=== PATIENT | male | born 1945 | race African-American/Black ===

== ENCOUNTER 2018-09-08 14:28 | Outpatient (CLI) | payer MEDICARE, MEDICAID ==
--- NOTE | 2018-09-08 14:56 | RAD ---
CHEST 2 VIEWS: Date: 09/08/18 HISTORY: Cough. COMPARISON: 07/09/13. FINDINGS: Borderline hyperinflation with scattered chronic lung changes. Patchy parenchymal changes in the left lower lobe, evidence for pneumonia. Right lung is clear. IMPRESSION: Evidence for left lower lobe pneumonia. Follow-up several weeks after completion of treatment to docu ment clearing. Minimal hyperinflation, stable. Atherosclerosis of aorta. CODE T. POS: OFF
== END 2018-09-08 14:29 | disposition home or self-care (01) ==
LOC: RAD-FRANK 14:28
PROVIDERS: ATTEND Nurse Practitioner Family
DX: R05 Cough (principal); J18.1 Lobar pneumonia, unspecified organism; I70.0 Atherosclerosis of aorta
CPT/HCPCS: 71046

== ENCOUNTER 2018-09-22 09:37 | Outpatient (CLI) | payer MEDICARE, MEDICAID ==
--- NOTE | 2018-09-22 09:48 | RAD ---
XR Chest Pa Lat STANDARD HISTORY: Cough COMPARISON: 09/08/2018 FINDINGS: The heart size is normal. The lungs are well expanded without focal areas of consolidation, pneumothorax or pleural effusions. The aorta is tortuous. The mild infiltrate at the left lung base shows near complete resolution. Minimal residual scarring may be present. There are degenerative changes in the spine. IMPRESSION: No radiographic evidence of acute cardiopulmonary process.
== END 2018-09-22 09:38 | disposition home or self-care (01) ==
LOC: RAD-FRANK 09:37
PROVIDERS: ATTEND Nurse Practitioner Family
DX: R05 Cough (principal)
CPT/HCPCS: 71046

== ENCOUNTER 2020-12-22 09:28 | Outpatient (CLI) | payer MEDICARE, MEDICAID | END 2020-12-22 09:29 | disposition home or self-care (01) | LOC: RAD-FRANK 09:28 | PROVIDERS: ATTEND Nurse Practitioner Family | DX: M79.622 Pain in left upper arm (principal); M19.012 Primary osteoarthritis, left shoulder ==

== ENCOUNTER 2023-02-11 10:48 | Outpatient (CLI) | payer MEDICARE | END 2023-02-11 10:49 | disposition home or self-care (01) | LOC: RAD-FRANK 10:48 | PROVIDERS: ATTEND Nurse Practitioner Family | DX: M54.50 Low back pain, unspecified (principal); M47.816 Spondylosis without myelopathy or radiculopathy, lumbar region | CPT/HCPCS: 72100 ==

== ENCOUNTER 2023-05-13 10:16 | Emergency (ER) | payer MEDICARE, MEDICAID ==
[2023-05-13] MEDS ORDERED: HYDROcodone/Acetaminophen 5/325 mg Tablet ONE (10:37)
== END 2023-05-13 10:47 | disposition home or self-care (01) ==
LOC: ERS 10:16
DX: M54.41 Lumbago with sciatica, right side (principal); I10 Essential (primary) hypertension; Z87.891 Personal history of nicotine dependence
CPT/HCPCS: 99283

== ENCOUNTER 2023-06-11 11:28 | Outpatient (CLI) | payer MEDICARE, MEDICAID | END 2023-06-11 11:29 | disposition home or self-care (01) | LOC: MRI 11:28 | PROVIDERS: ATTEND Nurse Practitioner Family | DX: M51.16 Intervertebral disc disorders with radiculopathy, lumbar region (principal); M47.816 Spondylosis without myelopathy or radiculopathy, lumbar region; M48.061 Spinal stenosis, lumbar region without neurogenic claudication; N28.9 Disorder of kidney and ureter, unspecified | CPT/HCPCS: 72148 ==